=== PATIENT | male | born 1995 | race Two or more races ===

== ENCOUNTER 2025-01-01 22:37 | Emergency (ER) | payer SELFPAY ==
--- NOTE | 2025-01-01 22:40 | PD.EDMEDCL ---
ED Medical Clearance RME/HPI General Stated complaint: INTERMEDIATE CLEARANCE Arrival date/time: 01/01/25 22:37 RME / HPI RME / HPI Narrative: See [facility] for Dr. Cao's HPI documentation. Review of Systems Review of Systems Systems Reviewed: All systems reviewed, normal except as documented ED Exam Narrative Physical exam: See [facility] for Dr. Cao's physical exam documentation. Course Quality Measures none Medical Clearance [facility] Narrative [facility] Narrative:: This section includes all my notes and documentations, including HPI, PE, and ED course. Alex Cao MD HPI: 29yo male ROS: All negative except as documented in HPI. Physical Exam: General: Alert and oriented. No acute distress when remaining still. Eyes: Conjunctivae and lids clear. ENT: No nasal congestion. Neck: Supple. Heart: RRR. Lungs: No respiratory distress. Good air movement. No rhonchi, wheezing, rales. Abdomen: Soft and nontender. Normal bowel sounds. No distension. No rebound or guarding. Back: No CVA tenderness. Skin: Warm and dry. Neuro: Alert and oriented X 3. I reviewed all diagnostic test results. My interpretation of the EKG is My interpretation of the chest x-ray is My review of the CT report is Blood tests and urine tests At this point, diagnoses include Treatment here included Significant improvement Not yet done: I discussed the case with our hospitalist. About the presentation and exam and diagnostics and treatments here. And need of further care in the hospital. Will accept the patient. Not yet done: Based on my best medical judgment, made decision no further evaluation or treatment indicated at this time. Patient understands and agrees to the discharge instructions customized and printed, see below. Alex Cao MD Patient data External records reviewed:: [facility] previous records (Per chart review, patient has no previous ED visits or admissions to this facility.) Clinical information provided by:: patient and law enforcement Social determinants that could affect healthcare access:: none Patient has the following chronic illnesses:: none How is presenting disease/condition affected by chronic disease/condition?: no chronic disease Evaluation data Lab and/or radiology exams considered but not ordered:: none Medications / Prescriptions Medications or Prescriptions considered but not ordered:: none Discharge Plan Patient/Caregiver Discharge Instructions Print Language: Afghan
[2025-01-01 23:10] VITALS: BP 142/86; PULSE 106; RESP 18; TEMP 36.7; O2SAT 97
[2025-01-01 23:20] VITALS: BMI 29.0
[2025-01-01 23:43] VITALS: BP 145/85; PULSE 100; RESP 14; TEMP 37; O2SAT 99
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
== END 2025-01-02 01:07 | disposition left against medical advice (07) ==
PROVIDERS: Emergency Provider Emergency Medicine
DX: Z02.89 Encounter for other administrative examinations (principal); S79.922A Unspecified injury of left thigh, initial encounter; S59.912A Unspecified injury of left forearm, initial encounter; R10.9 Unspecified abdominal pain; R07.89 Other chest pain; V43.52XA Car driver injured in collision with other type car in traffic accident, initial encounter
CPT/HCPCS: 73090; 73552; 80053; 80307; 80320; 82248; 83735; 85025; 85610; 85730; 99283; G0480